=== PATIENT | male | born 1990 | race Caucasian/White ===

== ENCOUNTER 2019-03-11 04:12 | Emergency (ER) | payer MEDICAID ==
[~2019-03-11] VITALS: Ht 185.4 cm; Wt 68.2 kg
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
== END 2019-03-11 04:32 ==
LOC: ER 04:12
DX: F10.129 Alcohol abuse with intoxication, unspecified (principal); R11.10 Vomiting, unspecified; R41.82 Altered mental status, unspecified; Z02.89 Encounter for other administrative examinations; Y90.9 Presence of alcohol in blood, level not specified
CPT/HCPCS: 99283

== ENCOUNTER 2019-03-25 22:30 | Emergency (ER) | payer MEDICAID ==
[~2019-03-25] VITALS: Ht 188 cm; Wt 74.5 kg
--- NOTE | 2019-03-25 22:40 | NUR ---
[facility] NOTIFIED.
[2019-03-25] MEDS ORDERED: nicotine 21mg patch - 24 hr TD ONE (23:10)
[2019-03-25] MEDS ORDERED: ibuprofen tablet 400 MG TABLET PO ONE (23:10)
[2019-03-25] MEDS ORDERED: ALPRAZolam 0.5mg tablet PO ONE (23:10)
--- NOTE | 2019-03-25 23:54 | NUR ---
[facility]C [place] #135 BEDSIDE
[2019-03-26] MEDS ORDERED: morphine 4 MG/ML inj SYRINge IM ONE (00:25)
[2019-03-26] MEDS ORDERED: HYDROcodone/acetaminophen 5mg/325mg tablet PO ONE (01:10)
--- NOTE | 2019-03-26 01:12 | NUR ---
ama DOCUMENTATION SIGNED AFTER RISK UPTO AND INCLUDING EXPLAINED BY dR Roberts AND FURTHER REITERATED BY PRIMARY rn. 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 i'M GOOD WITH IT." PT AOX4.
[2019-03-26 01:18] VITALS: BP 130/75
== END 2019-03-26 01:25 | disposition left against medical advice (07) ==
LOC: ER 22:30
DX: S01.81XA Laceration without foreign body of other part of head, initial encounter (principal); R22.0 Localized swelling, mass and lump, head; Z88.8 Allergy status to other drugs, medicaments and biological substances; Y04.0XXA Assault by unarmed brawl or fight, initial encounter; Y93.89 Activity, other specified; Y92.89 Other specified places as the place of occurrence of the external cause; Y99.9 Unspecified external cause status
CPT/HCPCS: 70450; 70486; 99284; J2270

== ENCOUNTER 2019-03-28 09:59 | Emergency (ER) | payer MEDICAID ==
[~2019-03-28] VITALS: Ht 188 cm; Wt 71.0 kg
--- NOTE | 2019-03-28 10:55 | NUR ---
Dr Plunkett notified of pt refusing IV.
--- NOTE | 2019-03-28 11:12 | NUR ---
pt to CT.
[2019-03-28 11:15] LABS: URINE AMPHETAMINE SCREEN POSITIVE (Neg); URINE BARBITUATE SCREEN NEGATIVE (Neg); URINE BENZODIAZEPINES SCREEN POSITIVE (Neg); URINE CANNABINOID SCREEN POSITIVE (Neg); URINE COCAINE SCREEN NEGATIVE (Neg); URINE METHADONE SCREEN NEGATIVE (Neg); URINE OPIATE SCREEN NEGATIVE (Neg); URINE PHENCYCLIDINE SCREEN NEGATIVE (Neg)
[2019-03-28 11:17] LABS: CLARITY,URINE CLOUDY (Clear); COLOR,URINE YELLOW (Yellow); GLUCOSE, URINE NEGATIVE (Neg); KETONES,URINE NEGATIVE (Neg); LEUKOCYTE ESTERASE ,URINE NEGATIVE (Neg); NITRITES, URINE NEGATIVE (Neg); OCCULT BLOOD,URINE TRACE-INTACT (Neg); PROTEIN,URINE 100 mg/dl (Neg)
[2019-03-28 11:30] LABS: UA COLLECTION TYPE CLN CATCH MIDSTREAM
--- NOTE | 2019-03-28 11:30 | NUR ---
dr. lopez at [facility], Addendum: 03/28/[address] cain at [facility].
[2019-03-28 11:32] LABS: MUCUS STRANDS MANY /LPF (Neg); SQUAMOUS EPITHELIAL CELL,UR FEW /LPF (FEW)
[2019-03-28 11:33] LABS: BACTERIA,URINE 1+ /HPF (Neg); RBC,URINE 0-2 /HPF (0-2); SPERM MANY /HPF (NEGATIVE); WBC,URINE 0-4 /HPF (0-4)
[2019-03-28 11:42] LABS: BASOPHILS # (AUTO) 0.1 X10'3 (0-0.2); BASOPHILS % (AUTO) 0.7 % (0-1); EOSINOPHILS % (AUTO) 0 % (0-6); HEMATOCRIT 47.4 % (42.0-52.0); HEMOGLOBIN 16.1 g/dl (14.0-17.9); LYMPHOCYTES # (AUTO) 0.5 X10'3 (1.1-4.8); LYMPHOCYTES % (AUTO) 4.9 % (21-51); MEAN CORPUSCULAR HEMOGLOBIN 30.9 PG (27.0-31.0); MEAN CORPUSCULAR VOLUME 91.1 FL (78-98); MEAN PLATELET VOLUME 8.5 FL (7.4-10.4); MONOCYTES # (AUTO) 0.3 X10'3 (0-0.9); MONOCYTES % (AUTO) 3.2 % (2-12); NEUTROPHILS # (AUTO) 9.5 X10'3 (1.8-7.7); NEUTROPHILS % (AUTO) 91.2 % (42-75); PLATELET COUNT 180 X10'3 (140-440); RED CELL DISTRIBUTION WIDTH 13.5 % (11.5-14.5); WHITE BLOOD COUNT 10.4 X10'3 (4.5-11.0)
[2019-03-28 11:55] LABS: ALANINE AMINOTRANSFERASE 20 U/L (12-78); ALBUMIN 4.2 G/DL (3.4-5.0); ALBUMIN/GLOBULIN RATIO 1.4 (1.1-1.5); ALKALINE PHOSPHATASE 94 IU/L (46-116); ANION GAP 10 (8-16); ASPARTATE AMINO TRANSFERASE 16 U/L (10-37); BILIRUBIN,TOTAL 0.6 MG/DL (0.1-1.0); BLOOD UREA NITROGEN 9 MG/DL (7-18); CALCIUM 9.3 MG/DL (8.5-10.1); CHLORIDE 104 MMOL/L (99-107); GLUCOSE 114 MG/DL (70-104); POTASSIUM 3.7 MMOL/L (3.5-5.1); SODIUM 141 MMOL/L (135-145); TOTAL CARBON DIOXIDE 26.8 MMOL/L (24-32); TOTAL PROTEIN 7.1 G/DL (6.4-8.2); eGFR > 90 ML/MIN
[2019-03-28 12:35] VITALS: BP 137/88
== END 2019-03-28 13:28 | disposition home or self-care (01) ==
LOC: ER 10:00
DX: S00.83XA Contusion of other part of head, initial encounter (principal); R56.9 Unspecified convulsions; F15.10 Other stimulant abuse, uncomplicated; F12.90 Cannabis use, unspecified, uncomplicated; Z88.8 Allergy status to other drugs, medicaments and biological substances; R11.2 Nausea with vomiting, unspecified; W18.39XA Other fall on same level, initial encounter; Y93.89 Activity, other specified; Y92.89 Other specified places as the place of occurrence of the external cause; Y99.8 Other external cause status
CPT/HCPCS: 36415; 70450; 80053; 80305; 81001; 82948; 85025; 99284

== ENCOUNTER 2020-08-05 05:27 | Emergency (ER) | payer MEDICAID ==
[~2020-08-05] VITALS: Ht 188 cm; Wt 70.5 kg
[2020-08-05] MEDS ORDERED: TETanus/Pertussis (Acell)/Diphther VAC/PF (Tdap-Adult) 0.5ml syringe IMVAC ONE (06:15)
[2020-08-05] MEDS ORDERED: LIDOcaine 1% W/epiNEPHrine 1:200,000 10ml vial IJ ONE (06:15)
[2020-08-05 06:19] LABS: ALBUMIN 3.8 G/DL (3.4-5.0); ANION GAP 9 (8-16); BLOOD UREA NITROGEN 11 MG/DL (7-18); CALCIUM 8.9 MG/DL (8.5-10.1); CHLORIDE 108 MMOL/L (99-107); CREATININE 0.92 MG/DL (0.60-1.10); GLUCOSE 119 MG/DL (70-104); POTASSIUM 3.2 MMOL/L (3.5-5.1); SODIUM 144 MMOL/L (135-145); TOTAL CARBON DIOXIDE 26.8 MMOL/L (24-32); eGFR > 90 ML/MIN
[2020-08-05 06:22] LABS: PARTIAL THROMBOPLASTIN TIME 27 SECONDS (22-32)
[2020-08-05 06:23] LABS: BASOPHILS # (AUTO) 0.1 X10'3 (0-0.2); EOSINOPHILS # (AUTO) 0.1 X10'3 (0-0.9); EOSINOPHILS % (AUTO) 1.2 % (0-6); HEMATOCRIT 43.9 % (42.0-52.0); HEMOGLOBIN 14.8 g/dl (14.0-17.9); LYMPHOCYTES # (AUTO) 1.1 X10'3 (1.1-4.8); LYMPHOCYTES % (AUTO) 26.9 % (21-51); MEAN CORPUSCULAR HEMOGLOBIN 30.9 PG (27.0-31.0); MEAN CORPUSCULAR HGB CONC 33.6 g/dL (33.0-36.5); MEAN CORPUSCULAR VOLUME 91.9 FL (78-98); MEAN PLATELET VOLUME 7.9 FL (7.4-10.4); MONOCYTES # (AUTO) 0.3 X10'3 (0-0.9); MONOCYTES % (AUTO) 6.7 % (2-12); NEUTROPHILS # (AUTO) 2.7 X10'3 (1.8-7.7); NEUTROPHILS % (AUTO) 63.2 % (42-75); PLATELET COUNT 218 X10'3 (140-440); RED BLOOD COUNT 4.77 X10'6 (4.70-6.10); RED CELL DISTRIBUTION WIDTH 13.6 % (11.5-14.5); WHITE BLOOD COUNT 4.2 X10'3 (4.5-11.0)
[2020-08-05 06:48] LABS: ALANINE AMINOTRANSFERASE 25 U/L (12-78); ALBUMIN/GLOBULIN RATIO 1.4 (1.1-1.5); ALKALINE PHOSPHATASE 80 IU/L (46-116); ASPARTATE AMINO TRANSFERASE 20 U/L (10-37); BILIRUBIN,TOTAL 0.7 MG/DL (0.1-1.0); ETHANOL < 0.010 GM/DL (0.0-0.010); TOTAL PROTEIN 6.5 G/DL (6.4-8.2)
[2020-08-05] MEDS ORDERED: bacitracin 15gm ointment TP ONE (07:20)
[2020-08-05] MEDS ORDERED: potassium Cl 20 mEq SR tablet PO STA (08:01)
--- NOTE | 2020-08-05 08:44 | NUR ---
PROVIDE PT BREAKFAST
[2020-08-05 09:00] LABS: URINE AMPHETAMINE SCREEN POSITIVE (Neg); URINE BARBITUATE SCREEN NEGATIVE (Neg); URINE BENZODIAZEPINES SCREEN NEGATIVE (Neg); URINE CANNABINOID SCREEN POSITIVE (Neg); URINE COCAINE SCREEN NEGATIVE (Neg); URINE METHADONE SCREEN NEGATIVE (Neg); URINE OPIATE SCREEN NEGATIVE (Neg); URINE PHENCYCLIDINE SCREEN NEGATIVE (Neg)
[2020-08-05 09:10] LABS: CLARITY,URINE CLEAR (Clear); COLOR,URINE YELLOW (Yellow); GLUCOSE, URINE NEGATIVE (Neg); KETONES,URINE NEGATIVE (Neg); LEUKOCYTE ESTERASE ,URINE NEGATIVE (Neg); NITRITES, URINE NEGATIVE (Neg); OCCULT BLOOD,URINE TRACE-LYSED (Neg); PROTEIN,URINE NEGATIVE (Neg); UROBILINOGEN,URINE 0.2 E.U/dL (0.2-1.0)
[2020-08-05 09:16] LABS: UA COLLECTION TYPE VOIDED
[2020-08-05 09:17] LABS: MUCUS STRANDS MANY /LPF (Neg)
[2020-08-05 09:18] LABS: HYALINE CASTS 0-3 /LPF (NEGATIVE); SQUAMOUS EPITHELIAL CELL,UR FEW /LPF (FEW)
[2020-08-05 09:20] LABS: BACTERIA,URINE FEW /HPF (Neg)
[2020-08-05 09:22] LABS: TRANSITIONAL EPI CELLS,URINE FEW /HPF
[2020-08-05 09:23] LABS: CAL OXALATE CRYSTALS 1+ /HPF (NEGATIVE)
[2020-08-05 09:25] LABS: SPERM FEW /HPF (NEGATIVE)
--- NOTE | 2020-08-05 11:15 | NUR ---
PRIMARY RN WAS SENT ON BREAK. PT RESTING AT THIS TIME IN BED ON HIS LEFT SIDE, NO SIGNS OF RESPIRATORY DISTRESS.
--- NOTE | 2020-08-05 11:35 | NUR ---
pt sleeping, in no apparent distress, even rise and fall of chest, will continue to monitor closely.
--- NOTE | 2020-08-05 12:44 | NUR ---
packet has been faxed to [facility]
--- NOTE | 2020-08-05 13:00 | NUR ---
Provided pt lunch.
[2020-08-05] MEDS ORDERED: acetaminophen 325mg tablet PO ONE (13:45)
--- NOTE | 2020-08-05 14:08 | NUR ---
[facility] CALLED AND REPORTED PT'S 5150 NEEDS DATE CORRECTED. WHEN HE IS RE-EVALUTED BY MENTAL HEALTH IT CAN BE REWRITEN.
--- NOTE | 2020-08-05 16:03 | NUR ---
pT SLEEPING, IN NO APPARENT DISTRESS, EVEN RISE AND FALL OF CHEST, WILL CONTINUE TO MONITOR CLOSELY.
--- NOTE | 2020-08-05 17:28 | NUR ---
[facility] AT BEDSIDE
[2020-08-05 17:45] VITALS: BP 108/56
--- NOTE | 2020-08-05 18:44 | NUR ---
ASSUMED CARE OF PATINENT IN BED FINISHING UP LUNCH . MICHELLE . AWAITING HIS DISCHRGE INSTRUCTION THAT NICK MULLEN GENERATED. PT OFFERD FATHERS PHONE NUMBER AT [phone] AND FATHER WAS PHONED FOR TRANSPORTATION HOME , FATHER WILL BE AT [facility] AT 1900B TO 1910 . PT CURRENT;Y EATING DINNER .
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
== END 2020-08-05 19:07 ==
LOC: ER 05:28
DX: S51.812A Laceration without foreign body of left forearm, initial encounter (principal); F31.9 Bipolar disorder, unspecified; F15.10 Other stimulant abuse, uncomplicated; F12.10 Cannabis abuse, uncomplicated; E87.6 Hypokalemia; R79.1 Abnormal coagulation profile; Z59.0 Homelessness; Z88.8 Allergy status to other drugs, medicaments and biological substances; X78.1XXA Intentional self-harm by knife, initial encounter; Y93.89 Activity, other specified; Y92.89 Other specified places as the place of occurrence of the external cause; Y99.8 Other external cause status
CPT/HCPCS: 12004; 36415; 80053; 80305; 80320; 81001; 84443; 85025; 85610; 85730; 90471; 90715; 99285

== ENCOUNTER 2020-11-12 20:24 | Emergency (ER) | payer MEDICAID ==
[~2020-11-12] VITALS: Ht 190.5 cm; Wt 68.2 kg
[2020-11-12 20:29] VITALS: BP 126/59
[2020-11-12] MEDS ORDERED: CefTRIAXone 250MG IM Kit w/LIDOcaine IM ONE (20:55)
[2020-11-12] MEDS ORDERED: azithromycin 250mg tablet PO ONE (20:55)
== END 2020-11-12 21:16 | disposition home or self-care (01) ==
LOC: ER 20:25
DX: Z20.2 Contact with and (suspected) exposure to infections with a predominantly sexual mode of transmission (principal); Z88.8 Allergy status to other drugs, medicaments and biological substances; Z88.1 Allergy status to other antibiotic agents
CPT/HCPCS: 36415; 87491; 87591; 96372; 99283; J0696